=== PATIENT | female | born 1985 | race American Indian/Alaskan Native ===

== ENCOUNTER 2017-12-22 15:29 | Emergency (ER) | payer SELFPAY ==
[2017-12-22 16:07] VITALS: BP 114/75
[2017-12-22 16:31] LABS: Basophils # (Auto) 0.1 K/mm3 (0.0-0.1); Basophils % (Auto) 0.6 % (0.0-1.8); Eosinophils % (Auto) 0.2 % (0.0-4.3); Hematocrit 37.8 % (30.3-42.9); Hemoglobin 12.5 gm/dl (10.1-14.3); Lymphocytes # (Auto) 3.3 K/mm3 (1.2-5.4); Lymphocytes % (Auto) 35.2 % (13.4-35.0); Mean Corpuscular HGB Conc 33 % (30-34); Mean Corpuscular Volume 77 fl (79-97); Monocytes # (Auto) 0.8 K/mm3 (0.0-0.8); Monocytes % (Auto) 8.2 % (0.0-7.3); Platelet Count 543 K/mm3 (140-440); Red Blood Count 4.91 M/mm3 (3.65-5.03); Red Cell Distribution Width 17.9 % (13.2-15.2)
[2017-12-22 16:32] LABS: Bilirubin,Urine NEG (Negative); Blood,Urine NEG (Negative); Color,Urine Yellow (Yellow); Mucus,Urine FEW /HPF; Protein,Urine <15 mg/dL mg/dL (Negative); Urobilinogen,Urine < 2.0 mg/dL (<2.0)
[2017-12-22 16:33] LABS: HCG Qualitative,Urine Negative (Negative)
[2017-12-22 16:36] LABS: Mean Corpuscular Hemoglobin 26 pg (28-32)
[2017-12-22 16:46] LABS: BUN/Creatinine Ratio 15; Blood Urea Nitrogen 12 mg/dL (7-17); Calcium 8.8 mg/dL (8.4-10.2); Hemolysis Index 4
[2017-12-22 16:50] LABS: Amphetamine Screen,Urine PRESUMPTIVE NEGATIVE; Benzodiazepines Screen,Urine PRESUMPTIVE NEGATIVE; Cannabinoid Screen,Urine PRESUMPTIVE NEGATIVE; Methadone Screen,Urine PRESUMPTIVE NEGATIVE; Opiate Screen,Urine PRESUMPTIVE NEGATIVE
[2017-12-22 17:03] LABS: Cocaine Screen,Urine PRESUMPTIVE POSITIVE
== END 2017-12-22 20:30 | disposition left against medical advice (07) ==
LOC: ED 15:29
DX: F31.9 Bipolar disorder, unspecified (principal); Z53.21 Procedure and treatment not carried out due to patient leaving prior to being seen by health care provider; Z79.899 Other long term (current) drug therapy
CPT/HCPCS: 36415; 80048; 80307; 81001; 81025; 85025; G0480; 80320

== ENCOUNTER 2017-12-23 06:51 | Emergency (ER) | payer OTHER ==
[2017-12-23 08:31] LABS: Bacteria,Urine 1+ /HPF (Negative); Bilirubin,Urine NEG (Negative); Blood,Urine NEG (Negative); Color,Urine Yellow (Yellow); Mucus,Urine FEW /HPF; Protein,Urine <15 mg/dL mg/dL (Negative); Urobilinogen,Urine < 2.0 mg/dL (<2.0)
[2017-12-23 08:51] LABS: Benzodiazepines Screen,Urine PRESUMPTIVE NEGATIVE; Cannabinoid Screen,Urine PRESUMPTIVE NEGATIVE; Methadone Screen,Urine PRESUMPTIVE NEGATIVE; Opiate Screen,Urine PRESUMPTIVE NEGATIVE
[2017-12-23 09:07] LABS: Basophils % (Auto) 0.3 % (0.0-1.8); Eosinophils # (Auto) 0.1 K/mm3 (0.0-0.4); Eosinophils % (Auto) 1.1 % (0.0-4.3); Hematocrit 36.1 % (30.3-42.9); Hemoglobin 11.7 gm/dl (10.1-14.3); Lymphocytes # (Auto) 2.3 K/mm3 (1.2-5.4); Lymphocytes % (Auto) 36.3 % (13.4-35.0); Mean Corpuscular HGB Conc 32 % (30-34); Mean Corpuscular Volume 78 fl (79-97); Monocytes # (Auto) 0.7 K/mm3 (0.0-0.8); Monocytes % (Auto) 11.6 % (0.0-7.3); Platelet Count 448 K/mm3 (140-440); Red Blood Count 4.64 M/mm3 (3.65-5.03); Red Cell Distribution Width 17.5 % (13.2-15.2)
--- NOTE | 2017-12-23 09:08 | Emergency Department Report ---
ED Psych HPI - General Chief Complaint: Psych Stated Complaint: MH Time Seen by Provider: 12/23/17 09:07 Source: patient Mode of arrival: Ambulatory - History of Present Illness Initial Comments: 32-year-old female who presented to triage stating that she attempted to hang herself. She was not complaining of any neck pain. She reported suicidal thoughts continuing. She stated that she "attempted suicide 3 I just don't feel any better." She states she has a history of depression[place] she was processed as a potential 1013. After I spoke with her the 1013 was executed. She was very guarded in the information she was giving to me. However she appeared clinically depressed and requires mental health evaluation. Thus she has been 1013. MD Complaint: suicidal ideation, feels depressed -: unknown Associated Psychiatric Symptoms: suicidal ideation History of same: Yes Quality: constant Improves With: none Worsens With: none Context: other (guarded history not giving much information) If Self Harm: admits thoughts of - Related Data Allergies Allergy/AdvReac Type Severity Reaction Status Date / Time No Known Allergies Allergy Unverified 12/22/17 16:01 ED Review of Systems ROS: Stated complaint: MH Other details as noted in HPI Comment: Unobtainable due to pts medical conditions (patient has no active complaints but is guarding her history she has is negative to any medical issues ) ED Past Medical Hx - Past Medical History Previous Medical History?: Yes Hx Psychiatric Treatment: Yes (Bipolar) Additional medical history: Drug use - Surgical History Past Surgical History?: No - Social History Smoking Status: Current Every Day Smoker Substance Use Type: Alcohol, Cocaine ED Physical Exam - General Limitations: Other (psychiatric disorder) General appearance: alert, in no apparent distress, obese - Head Head exam: Present: atraumatic, normocephalic - Eye Eye exam: Present: normal appearance, PERRL, EOMI - ENT ENT exam: Present: mucous membranes moist - Neck Neck exam: Present: normal inspection, full ROM, other (no swelling no rope burn and no ecchymosis nontender). Absent: tenderness, meningismus - Respiratory Respiratory exam: Present: normal lung sounds bilaterally. Absent: respiratory distress - Cardiovascular Cardiovascular Exam: Present: regular rate, normal rhythm. Absent: systolic murmur, diastolic murmur, rubs, gallop - GI/Abdominal GI/Abdominal exam: Present: soft, normal bowel sounds. Absent: distended, tenderness, guarding, rebound, rigid - Extremities Exam Extremities exam: Present: normal inspection - Back Exam Back exam: Present: normal inspection - Neurological Exam Neurological exam: Present: alert, oriented X3, CN II-XII intact. Absent: motor sensory deficit - Psychiatric Psychiatric exam: Present: normal affect, normal mood - Skin Skin exam: Present: warm, dry, intact, normal color. Absent: rash ED Course Vital Signs 12/23/17 07:24 Temperature 98.6 F Pulse Rate 78 Respiratory 18 Rate Blood Pressure 127/87 O2 Sat by Pulse 100 Oximetry - Reevaluation(s) Reevaluation #1: 1013. Mental health evaluation. 12/23/17 11:00 ED Medical Decision Making - Lab Data Result diagrams: 12/23/17 08:19 12/23/17 08:19 Laboratory Results - last 24 hr 12/23/17 12/23/17 12/23/17 08:10 08:10 08:19 WBC RBC Hgb Hct MCV MCH MCHC RDW Plt Count Lymph % (Auto) [place] % (Auto) Eos % (Auto) Baso % (Auto) Lymph # [place] # Eos # Baso # Seg Neutrophils % Seg Neutrophils # Sodium Potassium Chloride Carbon Dioxide Anion Gap BUN Creatinine Estimated GFR BUN/Creatinine Ratio Glucose Calcium Total Creatine Kinase CK-MB (CK-2) CK-MB (CK-2) Rel Index Urine Color Yellow Urine Turbidity Clear Urine pH 5.0 Ur Specific [place] 1.026 Urine Protein <15 mg/dl Urine Glucose (UA) Neg Urine Ketones Neg Urine Blood Neg Urine Nitrite Neg Urine Bilirubin Neg Urine Urobilinogen < 2.0 Ur Leukocyte Esterase Neg Urine WBC (Auto) 1.0 Urine RBC (Auto) 2.0 U Epithel Cells (Auto) 8.0 Urine Bacteria (Auto) 1+ Urine Mucus Few Salicylates < 0.3 L Urine Opiates Screen Presumptive negative Urine Methadone Screen Presumptive negative Acetaminophen Ur Barbiturates Screen Presumptive negative Ur Phencyclidine Scrn Presumptive negative Ur Amphetamines Screen Presumptive positive U Benzodiazepines Scrn Presumptive negative Urine Cocaine Screen Presumptive positive U Marijuana (THC) Screen Presumptive negative Drugs of Abuse Note Disclamer Plasma/Serum Alcohol 12/23/17 12/23/17 12/23/17 08:19 08:19 08:19 WBC RBC Hgb Hct MCV MCH MCHC RDW Plt Count Lymph % (Auto) [place] % (Auto) Eos % (Auto) Baso % (Auto) Lymph # [place] # Eos # Baso # Seg Neutrophils % Seg Neutrophils # Sodium 140 Potassium 3.9 Chloride 101.6 Carbon Dioxide 27 Anion Gap 15 BUN 15 Creatinine 0.8 Estimated GFR > 60 BUN/Creatinine Ratio 19 Glucose 90 Calcium 8.6 Total Creatine Kinase CK-MB (CK-2) CK-MB (CK-2) Rel Index Urine Color Urine Turbidity Urine pH Ur Specific [place] Urine Protein Urine Glucose (UA) Urine Ketones Urine Blood Urine Nitrite Urine Bilirubin Urine Urobilinogen Ur Leukocyte Esterase Urine WBC (Auto) Urine RBC (Auto) U Epithel Cells (Auto) Urine Bacteria (Auto) Urine Mucus Salicylates Urine Opiates Screen Urine Methadone Screen Acetaminophen < 5.0 L Ur Barbiturates Screen Ur Phencyclidine Scrn Ur Amphetamines Screen U Benzodiazepines Scrn Urine Cocaine Screen U Marijuana (THC) Screen Drugs of Abuse Note Plasma/Serum Alcohol < 0.01 12/23/17 12/23/17 08:19 08:19 WBC 6.2 RBC 4.64 Hgb 11.7 Hct 36.1 MCV 78 L MCH 25 L MCHC 32 RDW 17.5 H Plt Count 448 H Lymph % (Auto) 36.3 H [place] % (Auto) 11.6 H Eos % (Auto) 1.1 Baso % (Auto) 0.3 Lymph # 2.3 [place] # 0.7 Eos # 0.1 Baso # 0.0 Seg Neutrophils % 50.7 Seg Neutrophils # 3.2 Sodium Potassium Chloride Carbon Dioxide Anion Gap BUN Creatinine Estimated GFR BUN/Creatinine Ratio Glucose Calcium Total Creatine Kinase 206 H CK-MB (CK-2) 1.6 CK-MB (CK-2) Rel Index 0.7 Urine Color Urine Turbidity Urine pH Ur Specific [place] Urine Protein Urine Glucose (UA) Urine Ketones Urine Blood Urine Nitrite Urine Bilirubin Urine Urobilinogen Ur Leukocyte Esterase Urine WBC (Auto) Urine RBC (Auto) U Epithel Cells (Auto) Urine Bacteria (Auto) Urine Mucus Salicylates Urine Opiates Screen Urine Methadone Screen Acetaminophen Ur Barbiturates Screen Ur Phencyclidine Scrn Ur Amphetamines Screen U Benzodiazepines Scrn Urine Cocaine Screen U Marijuana (THC) Screen Drugs of Abuse Note Plasma/Serum Alcohol Laboratory Results - last 24 hr 12/23/17 12/23/17 12/23/17 08:10 08:10 08:19 WBC RBC Hgb Hct MCV MCH MCHC RDW Plt Count Lymph % (Auto) [place] % (Auto) Eos % (Auto) Baso % (Auto) Lymph # [place] # Eos # Baso # Seg Neutrophils % Seg Neutrophils # Sodium Potassium Chloride Carbon Dioxide Anion Gap BUN Creatinine Estimated GFR BUN/Creatinine Ratio Glucose Calcium Total Creatine Kinase CK-MB (CK-2) CK-MB (CK-2) Rel Index Urine Color Yellow Urine Turbidity Clear Urine pH 5.0 Ur Specific [place] 1.026 Urine Protein <15 mg/dl Urine Glucose (UA) Neg Urine Ketones Neg Urine Blood Neg Urine Nitrite Neg Urine Bilirubin Neg Urine Urobilinogen < 2.0 Ur Leukocyte Esterase Neg Urine WBC (Auto) 1.0 Urine RBC (Auto) 2.0 U Epithel Cells (Auto) 8.0 Urine Bacteria (Auto) 1+ Urine Mucus Few Salicylates < 0.3 L Urine Opiates Screen Presumptive negative Urine Methadone Screen Presumptive negative Acetaminophen Ur Barbiturates Screen Presumptive negative Ur Phencyclidine Scrn Presumptive negative Ur Amphetamines Screen Presumptive positive U Benzodiazepines Scrn Presumptive negative Urine Cocaine Screen Presumptive positive U Marijuana (THC) Screen Presumptive negative Drugs of Abuse Note Disclamer Plasma/Serum Alcohol 12/23/17 12/23/17 12/23/17 08:19 08:19 08:19 WBC RBC Hgb Hct MCV MCH MCHC RDW Plt Count Lymph % (Auto) [place] % (Auto) Eos % (Auto) Baso % (Auto) Lymph # [place] # Eos # Baso # Seg Neutrophils % Seg Neutrophils # Sodium 140 Potassium 3.9 Chloride 101.6 Carbon Dioxide 27 Anion Gap 15 BUN 15 Creatinine 0.8 Estimated GFR > 60 BUN/Creatinine Ratio 19 Glucose 90 Calcium 8.6 Total Creatine Kinase CK-MB (CK-2) CK-MB (CK-2) Rel Index Urine Color Urine Turbidity Urine pH Ur Specific [place] Urine Protein Urine Glucose (UA) Urine Ketones Urine Blood Urine Nitrite Urine Bilirubin Urine Urobilinogen Ur Leukocyte Esterase Urine WBC (Auto) Urine RBC (Auto) U Epithel Cells (Auto) Urine Bacteria (Auto) Urine Mucus Salicylates Urine Opiates Screen Urine Methadone Screen Acetaminophen < 5.0 L Ur Barbiturates Screen Ur Phencyclidine Scrn Ur Amphetamines Screen U Benzodiazepines Scrn Urine Cocaine Screen U Marijuana (THC) Screen Drugs of Abuse Note Plasma/Serum Alcohol < 0.01 12/23/17 12/23/17 08:19 08:19 WBC 6.2 RBC 4.64 Hgb 11.7 Hct 36.1 MCV 78 L MCH 25 L MCHC 32 RDW 17.5 H Plt Count 448 H Lymph % (Auto) 36.3 H [place] % (Auto) 11.6 H Eos % (Auto) 1.1 Baso % (Auto) 0.3 Lymph # 2.3 [place] # 0.7 Eos # 0.1 Baso # 0.0 Seg Neutrophils % 50.7 Seg Neutrophils # 3.2 Sodium Potassium Chloride Carbon Dioxide Anion Gap BUN Creatinine Estimated GFR BUN/Creatinine Ratio Glucose Calcium Total Creatine Kinase 206 H CK-MB (CK-2) 1.6 CK-MB (CK-2) Rel Index 0.7 Urine Color Urine Turbidity Urine pH Ur Specific [place] Urine Protein Urine Glucose (UA) Urine Ketones Urine Blood Urine Nitrite Urine Bilirubin Urine Urobilinogen Ur Leukocyte Esterase Urine WBC (Auto) Urine RBC (Auto) U Epithel Cells (Auto) Urine Bacteria (Auto) Urine Mucus Salicylates Urine Opiates Screen Urine Methadone Screen Acetaminophen Ur Barbiturates Screen Ur Phencyclidine Scrn Ur Amphetamines Screen U Benzodiazepines Scrn Urine Cocaine Screen U Marijuana (THC) Screen Drugs of Abuse Note Plasma/Serum Alcohol Critical care attestation.: If time is entered above; I have spent that time in minutes in the direct care of this critically ill patient, excluding procedure time. ED Disposition Clinical Impression: Polysubstance abuse Suicide gesture Qualifiers: Encounter type: initial encounter Qualified Code(s): X83.8XXA - Intentional self-harm by other specified means, initial encounter Bipolar disorder Qualifiers: Active/Remission status: currently active Current bipolar episode type: depressed Current episode severity: moderate Qualified Code(s): F31.32 - Bipolar disorder, current episode depressed, moderate Disposition: DC/TX-65 PSY HOSP/PSY UNIT Is pt being admited?: No Does the pt Need Aspirin: No Condition: Stable Referrals: PRIMARY CARE, [Primary Care Provider] - 3-5 Days Time of Disposition: 11:02
[2017-12-23 09:13] LABS: Mean Corpuscular Hemoglobin 25 pg (28-32)
[2017-12-23 09:17] LABS: Amphetamine Screen,Urine PRESUMPTIVE POSITIVE; Cocaine Screen,Urine PRESUMPTIVE POSITIVE
[2017-12-23 09:23] LABS: BUN/Creatinine Ratio 19; Blood Urea Nitrogen 15 mg/dL (7-17); Calcium 8.6 mg/dL (8.4-10.2); Hemolysis Index 1
[2017-12-23] MEDS ORDERED: ATIVAN PO ONE (09:25)
[2017-12-23] MEDS ORDERED: ATIVAN IM PRN (09:32)
[2017-12-23 09:46] LABS: Creatine Kinase MB 1.6 ng/mL (0.0-4.0)
[2017-12-23] MEDS ORDERED: ALUM-MAG HYDROX-SIMETH 200-200-20MG/5ML PO PRN (20:08)
[2017-12-24 02:24] VITALS: BP 107/61
== END 2017-12-24 04:20 ==
LOC: ED 06:51 → EEVIPCON 06:51 → ED 12-24 04:20
DX: T14.91XA Suicide attempt, initial encounter (principal); F31.32 Bipolar disorder, current episode depressed, moderate; F14.10 Cocaine abuse, uncomplicated; F15.10 Other stimulant abuse, uncomplicated; F17.200 Nicotine dependence, unspecified, uncomplicated; Z79.899 Other long term (current) drug therapy; X83.8XXA Intentional self-harm by other specified means, initial encounter; Y93.89 Activity, other specified; Y99.8 Other external cause status; Y92.89 Other specified places as the place of occurrence of the external cause
CPT/HCPCS: 36415; 80048; 80307; 81001; 82550; 82553; 85025; 96372; 99285; G0480; J2060; 80320

== ENCOUNTER 2020-03-13 02:30 | Emergency (ER) | payer SELFPAY ==
[2020-03-13 06:10] LABS: Basophils % (Auto) 0.5 % (0.0-1.8); Eosinophils # (Auto) 0.1 K/mm3 (0.0-0.4); Eosinophils % (Auto) 0.7 % (0.0-4.3); Hematocrit 34.6 % (30.3-42.9); Hemoglobin 11.5 gm/dl (10.1-14.3); Lymphocytes # (Auto) 3.5 K/mm3 (1.2-5.4); Lymphocytes % (Auto) 36.2 % (13.4-35.0); Mean Corpuscular HGB Conc 33 % (30-34); Mean Corpuscular Volume 81 fl (79-97); Monocytes # (Auto) 0.7 K/mm3 (0.0-0.8); Monocytes % (Auto) 6.8 % (0.0-7.3); Platelet Count 356 K/mm3 (140-440); Red Blood Count 4.29 M/mm3 (3.65-5.03); Red Cell Distribution Width 18.8 % (13.2-15.2)
[2020-03-13 06:31] LABS: BUN/Creatinine Ratio 15; Blood Urea Nitrogen 15 mg/dL (7-17); Calcium 8.4 mg/dL (8.4-10.2); Hemolysis Index 10
--- NOTE | 2020-03-13 06:54 | Emergency Department Report ---
ED Psych HPI - General Chief Complaint: Psych Stated Complaint: SUICIDAL-WANTS TO KILL HERSELF Time Seen by Provider: 03/13/20 06:53 Source: patient Mode of arrival: Ambulatory - History of Present Illness Initial Comments: This is a 34-year-old female presenting with recurrent thoughts of suicidal intent according to triage note. I have seen this patient in 2018 whereupon a 1013 was executed: 32-year-old female who presented to triage stating that she attempted to hang herself. She was not complaining of any neck pain. She reported suicidal thoughts continuing. She stated that she "attempted suicide 3 I just don't feel any better." She states she has a history of depression. [place] arrival she was processed as a potential 1013. After I spoke with her the 1013 was executed. She was very guarded in the information she was gi ving to me. However she appeared clinically depressed and requires mental health evaluation. Thus she has been 1013. The patient tells me that she has been having thoughts of hurting herself over the last 2 weeks. She resides in [place]. She was given a prescription for escitalopram down there. She states she always comes up to [facility] when she has a mental health issue. She admits to taking 4 Flexeril's last night because "I cannot sleep". She denies that this was a suicidal gesture. She states that she has taken an overdose in the past. He states that she does hear voices and that they are keeping her up. She was previously on Abilify. She states she has not been able to afford to take this medicine for 1 year. Patient is cooperative at the time of my encounter. She is not expressing any active suicidal ideation at that time. MD Complaint: suicidal ideation -: week(s) Associated Psychiatric Symptoms: suicidal ideation, auditory hallucinations History of same: Yes Quality: intermittent Improves With: none Worsens With: none Context: not taking psychiatric Associated Symptoms: denies other symptoms (Previously prescribed Abilify) Treatments Prior to Arrival: none If Self Harm: admits thoughts of - Related Data Previous Rx's Medication Instructions Recorded Last Taken Type Mag Hydrox/Aluminum Hyd/Simeth 20 ml PO QID PRN #1 bottle 03/28/18 Unknown Rx [Maalox Advanced Suspension] Omeprazole 20 mg PO DAILY #30 tablet. 03/28/18 Unknown Rx Ondansetron [Zofran Odt] 4 mg PO Q8HR #20 tab.lilli 03/28/18 Unknown Rx Ondansetron [Zofran Odt] 4 mg PO Q8HR PRN #20 tab.rapdis 03/28/18 Unknown Rx polyethylene glycoL 3350 [Miralax 17 gm PO QDAY PRN #10 packet 03/28/18 Unknown Rx 3350] traMADoL [Ultram 50 MG tab] 50 mg PO Q6HR PRN #20 tablet 03/28/18 Unknown Rx Allergies Allergy/AdvReac Type Severity Reaction Status Date / Time doxycycline Allergy Unknown Verified 03/13/20 04:52 ED Review of Systems ROS: Stated complaint: SUICIDAL-WANTS TO KILL HERSELF Other details as noted in HPI Constitutional: denies: chills, fever Eyes: eye discharge. denies: eye pain, vision change ENT: denies: ear pain, throat pain Respiratory: denies: cough, shortness of breath Cardiovascular: denies: chest pain, palpitations Endocrine: no symptoms reported Gastrointestinal: denies: abdominal pain, nausea Genitourinary: denies: urgency, dysuria Musculoskeletal: denies: back pain, arthralgia Skin: denies: rash, lesions Neurological: denies: headache, weakness, paresthesias Psychiatric: auditory hallucinations, suicidal thoughts. denies: anxiety, depression Hematological/Lymphatic: denies: easy bleeding, easy bruising ED Past Medical Hx - Past Medical History Previous Medical History?: Yes Hx GERD: Yes Hx Psychiatric Treatment: Yes (Bipolar) Hx Asthma: Yes Additional medical history: Drug use - Surgical History Past Surgical History?: Yes Additional Surgical History: hernia surgery - Social History Smoking Status: Current Every Day Smoker - Medications Home Medications: Home Medications Medication Instructions Recorded Confirmed Last Taken Type Mag Hydrox/Aluminum Hyd/Simeth 20 ml PO QID PRN #1 bottle 03/28/18 Unknown Rx [Maalox Advanced Suspension] Omeprazole 20 mg PO DAILY #30 tablet. 03/28/18 Unknown Rx Ondansetron [Zofran Odt] 4 mg PO Q8HR #20 tab.lilli 03/28/18 Unknown Rx Ondansetron [Zofran Odt] 4 mg PO Q8HR PRN #20 tab.lilli 03/28/18 Unknown Rx polyethylene glycoL 3350 [Miralax 17 gm PO QDAY PRN #10 packet 03/28/18 Unknown Rx 3350] traMADoL [Ultram 50 MG tab] 50 mg PO Q6HR PRN #20 tablet 03/28/18 Unknown Rx ED Physical Exam - General Limitations: No Limitations General appearance: alert, in no apparent distress - Head Head exam: Present: atraumatic, normocephalic - Eye Eye exam: Present: normal appearance. Absent: scleral icterus - ENT ENT exam: Present: mucous membranes moist - Neck Neck exam: Present: normal inspection - Respiratory Respiratory exam: Present: normal lung sounds bilaterally. Absent: respiratory distress - Cardiovascular Cardiovascular Exam: Present: regular rate, normal rhythm. Absent: systolic murmur, diastolic murmur, rubs, gallop - GI/Abdominal GI/Abdominal exam: Present: soft, normal bowel sounds. Absent: distended, tenderness, guarding - Extremities Exam Extremities exam: Present: normal inspection - Back Exam Back exam: Present: normal inspection - Neurological Exam Neurological exam: Present: alert, oriented X3, CN II-XII intact, normal gait. Absent: motor sensory deficit - Psychiatric Psychiatric exam: Present: normal mood, flat affect - Skin Skin exam: Present: warm, dry, intact, normal color. Absent: rash ED Course Vital Signs 03/13/20 03/13/20 04:50 10:33 Temperature 98.1 F 98.2 F Pulse Rate 75 66 Respiratory 14 18 Rate Blood Pressure 122/69 Blood Pressure 127/72 [Left] O2 Sat by Pulse 98 99 Oximetry - Reevaluation(s) Reevaluation #1: Mental health consultation is pending. Disposition will be per their determination. 03/13/20 07:06 Reevaluation #2: Conferred with mental health counselor. 1013 is executed. Psychiatry staff will make rounds. Patient is medically clear. 03/13/20 12:52 ED Medical Decision Making - Lab Data Result diagrams: 03/13/20 05:49 03/13/20 05:49 Laboratory Results - last 24 hr 03/13/20 03/13/20 03/13/20 05:49 05:49 05:49 WBC RBC Hgb Hct MCV MCH MCHC RDW Plt Count Lymph % (Auto) [place] % (Auto) Eos % (Auto) Baso % (Auto) Lymph # [place] # Eos # Baso # Seg Neutrophils % Seg Neutrophils # Sodium 138 Potassium 4.0 Chloride 105.4 Carbon Dioxide 20 L Anion Gap 17 BUN 15 Creatinine 1.0 Estimated GFR > 60 BUN/Creatinine Ratio 15 Glucose 115 H Calcium 8.4 HCG, Qual Salicylates < 0.3 L Acetaminophen 5.0 L Plasma/Serum Alcohol 03/13/20 03/13/20 03/13/20 05:49 05:49 05:49 WBC 9.7 RBC 4.29 Hgb 11.5 Hct 34.6 MCV 81 MCH 27 L MCHC 33 RDW 18.8 H Plt Count 356 Lymph % (Auto) 36.2 H [place] % (Auto) 6.8 Eos % (Auto) 0.7 Baso % (Auto) 0.5 Lymph # 3.5 [place] # 0.7 Eos # 0.1 Baso # 0.0 Seg Neutrophils % 55.8 Seg Neutrophils # 5.4 Sodium Potassium Chloride Carbon Dioxide Anion Gap BUN Creatinine Estimated GFR BUN/Creatinine Ratio Glucose Calcium HCG, Qual Negative Salicylates Acetaminophen Plasma/Serum Alcohol < 0.01 Critical care attestation.: If time is entered above; I have spent that time in minutes in the direct care of this critically ill patient, excluding procedure time. ED Disposition Clinical Impression: Suicidal ideation, Bipolar disorder with psychotic features, Medical clearance for psychiatric admission Depression Qualifiers: Depression Type: unspecified Qualified Code(s): F32.9 - Major depressive disorder, single episode, unspecified Disposition: DC/TX-65 PSY HOSP/PSY UNIT Is pt being admited?: No Does the pt Need Aspirin: No Condition: Stable Referrals: PRIMARY CARE, [Primary Care Provider] - 3-5 Days Time of Disposition: 12:53
[2020-03-13 08:35] LABS: Bilirubin,Urine NEG (Negative); Blood,Urine NEG (Negative); Color,Urine Yellow (Yellow); Mucus,Urine FEW /HPF; Protein,Urine <15 mg/dL mg/dL (Negative); Urobilinogen,Urine < 2.0 mg/dL (<2.0); WBC,Urine < 1.0 /HPF (0.0-6.0)
[2020-03-13 08:44] LABS: Amphetamine Screen,Urine Negative; Benzodiazepines Screen,Urine Negative; Cannabinoid Screen,Urine Negative; Cocaine Screen,Urine Negative; Methadone Screen,Urine Negative; Opiate Screen,Urine Negative
[2020-03-13] MEDS ORDERED: MAGNESIUM HYDROXIDE (MOM) ORAL LIQD UDC PO PRN (12:47)
[2020-03-13] MEDS ORDERED: ACETAMINOPHEN 325 MG TAB PO PRN (12:47)
[2020-03-13] MEDS: CITALOPRAM 20 MG TAB PO SCH (14:22)
[2020-03-14] MEDS: CITALOPRAM 20 MG TAB PO SCH (10:34)
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
[2020-03-14] MEDS: FLUoxetine 10 MG TAB PO SCH (13:01)
[2020-03-14] MEDS: HALOPERIDOL 2 MG TAB PO SCH ×2 (13:01→23:00)
[2020-03-14] MEDS: ALUM-MAG HYDROXIDE-SIMETHICONE 200-200-20MG/5ML ORAL LIQD 30 ML PO PRN (13:07)
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
[2020-03-15] MEDS ORDERED: HALOPERIDOL 2 MG TAB PO SCH (08:54)
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
[2020-03-15] MEDS: FLUoxetine 10 MG TAB PO SCH (09:35)
[2020-03-15] MEDS: HALOPERIDOL 5 MG TAB PO SCH ×2 (09:35→23:31)
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
[2020-03-15] MEDS ORDERED: NICOTINE 14 MG/24 HR PATCH TD ONE (23:32)
[2020-03-16] MEDS: ALUM-MAG HYDROXIDE-SIMETHICONE 200-200-20MG/5ML ORAL LIQD 30 ML PO PRN (09:40)
[2020-03-16] MEDS: FLUoxetine 10 MG TAB PO SCH (10:47)
[2020-03-16] MEDS: HALOPERIDOL 5 MG TAB PO SCH ×2 (10:47→22:00)
--- NOTE | 2020-03-16 10:50 | Progress Note ---
Subjective - Reason for Consult Consult date: 03/16/20 Reason for consult: SI - Chief Complaint Chief complaint: The patient's medical record was reviewed and the patient's progress was discussed with the nursing staff. During my interview with the patient today, she was lying down in bed. Awake. The patient is a/o x 3. She is calm and cooperative. She verbalizes being in a "dark depressed state." She states, "but I do feel much better." The patient denies SI/HI, stating "I was when I came in but not since yesterday." She verbalizes, "bugs crawling on the floor of her room" but states "they are not as bad as before." REVIEW OF SYSTEMS Constitutional: Negative for weight loss ENT: Negative for stridor Respiratory: Negative for cough or hemoptysis All other systems reviewed and are negative MENTAL STATUS EXAMINATION General Appearance: Dressed appropriately Behavior: Calm and cooperative. Good eye contact. Mood: "dark, depressed state" Affect and affective range: Restricted Speech: Normal volume, Regular rate and rhythm Thought Process: Goal directed Thought Content: Suicidal Ideation: Denies Homicidal Ideation: Denies Hallucinations: Visual Delusions: None elicited Insight and Judgment: Limited Memory/Cognition: Normal Attention: Normal, Assessment (1) Bipolar disorder, Current Episode Depressed w/Psychotic features Current Visit: Yes Status: Acute PLAN Increased Prozac 20mg po daily Risks, benefits and alternatives of medications discussed with the patient, questions answered and consent obtained from patient. PSYCHOTHERAPY: Supportive psychotherapy provided MEDICAL: Per primary team DELIRIUM PRECAUTIONS: Please re-orient patient frequently, keep lights on during the day, and minimize benzodiazepines and opiates as these medications could worsen patient's confusion. VP INFORMATION TECHNOLOGY: Defer to primary DISPOSITION: Recommend acute inpatient psychiatric hospitalization at this time LEGAL STATUS: 1013 FOLLOW-UP: Will follow Thank you for the consult. Please contact with any questions and/or concerns. Mental Status Exam - Vital signs Last Vital Signs Temp 98.6 F 03/16/20 08:28 Pulse 75 03/16/20 08:28 Resp 18 03/16/20 08:28 BP 123/74 03/16/20 08:28 Pulse Ox 98 03/16/20 08:28
[2020-03-16] MEDS ORDERED: FLUoxetine 20 MG CAP PO ONE (12:00)
[2020-03-16] MEDS ORDERED: FLUoxetine 20 MG CAP ONE (14:48)
[2020-03-17 09:49] VITALS: BP 150/92
--- NOTE | 2020-03-17 09:57 | Progress Note ---
Subjective - Reason for Consult Consult date: 03/17/20 Reason for consult: SI - Chief Complaint Chief complaint: The patient's medical record was reviewed and the patient's progress was discussed with the nursing staff. The nurse note states the patient resting quietly on recliner, resp even and non labored, no acute distress noted, no s/s of self harm noted, no complaints of voiced, able to make needs known, ambulates as needed to restroom. During my interview with the patient today, she was lying down in bed. Awake. The patient is a/o x 3. She is calm and cooperative. She is pleasant and is much more upbeat than yesterday. The patient states, "ma'am I feel good, so much better since I got on my meds." She states, "that's really all I needed to do anyway." The patient denies SI/HI or any fear or feelings of endangerment of going home. She states, "I don't want to hurt anybody, especially myself." She says, "I want to follow up with outpatient in my hometown [facility]." She states, "I also need to get back to work. I have a pretty car I have to pay for." The patient denies hallucinations of any kind. She also denies any problems with her appetite. The patient states she "slept good" when asked. The patient had me to call her significant other. I phone her from the patient's bedside and discussed the patient treatment plan and discharge instructions. The patient's significant other will pick her up from the ER today. She has no fear or reservations of the patient being discharge home. REVIEW OF SYSTEMS Constitutional: Negative for weight loss ENT: Negative for stridor Respiratory: Negative for cough or hemoptysis All other systems reviewed and are negative MENTAL STATUS EXAMINATION General Appearance: Dressed appropriately Behavior: Calm and cooperative. Good eye contact. Pleasant Mood: "much better, good" Affect and affective range: Congruent with stated mood Speech: Normal volume, Regular rate and rhythm Thought Process: Goal directed Thought Content: Suicidal Ideation: Denies Homicidal Ideation: Denies Hallucinations: Denies Delusions: None elicited Insight and Judgment: Limited Memory/Cognition: Normal Attention: Normal, Assessment (1) Bipolar disorder, Current Episode Depressed w/Psychotic features Current Visit: Yes Status: Acute PLAN D/c 1013 Scripts Prozac 20mg po daily Haldol 5mg po BID Risks, benefits and alternatives of medications discussed with the patient, questions answered and consent obtained from patient. PSYCHOTHERAPY: Supportive psychotherapy provided MEDICAL: Per primary team DELIRIUM PRECAUTIONS: Please re-orient patient frequently, keep lights on during the day, and minimize benzodiazepines and opiates as these medications could worsen patient's confusion. VAT OPERATOR: Defer to primary DISPOSITION: The patient does not meet the requirement for acute inpatient psychiatric hospitalization at this time. She may discharge home once medically clear. The patient understands that if suicidal thoughts or any fear or feelings of endangerment are to arise she is to seek immediate assistance including but not limited to the crisis hotline, 911 and/or ER. The stage rigger is to give the patient outpatient resources for psychiatry and cognitive behavior therapy. The stage rigger is to further discuss the safety plan with the patient. The patient is to follow up with primary or outpatient psychiatry in 7 to 14 days upon discharge. Will sign off. Thank you for the consult. Please contact with any questions and/or concerns. Mental Status Exam - Vital signs Last Vital Signs Temp 97.6 F 03/17/20 09:48 Pulse 106 H 03/17/20 09:48 Resp 18 03/17/20 09:48 BP 150/92 03/17/20 09:48 Pulse Ox 99 03/17/20 09:48
[2020-03-17] MEDS ORDERED: FLUoxetine 20 MG CAP PO SCH (11:00)
[2020-03-17] MEDS: HALOPERIDOL 5 MG TAB PO SCH (11:04)
== END 2020-03-17 12:33 | disposition home or self-care (01) ==
LOC: EEVIPCON 02:30 → ED 02:30
DX: F31.9 Bipolar disorder, unspecified (principal); R45.851 Suicidal ideations; K21.9 Gastro-esophageal reflux disease without esophagitis; J45.909 Unspecified asthma, uncomplicated; F17.200 Nicotine dependence, unspecified, uncomplicated; Z98.890 Other specified postprocedural states; Z88.8 Allergy status to other drugs, medicaments and biological substances; Z79.899 Other long term (current) drug therapy; Z00.8 Encounter for other general examination
CPT/HCPCS: 36415; 80048; 80307; 80320; 81001; 84703; 85025; G0480